=== PATIENT | female | born 2000 | race Caucasian/White ===

== ENCOUNTER 2020-10-24 10:41 | Emergency (ER) | payer BC, OTHER ==
--- OUTSIDE RECORDS SUMMARY | 2020-10-24 10:44 | XMS REPORT | Continuity of Care Document ---
:2000 Author Organization [facility] t Address [address] [place] [address] Care Team Providers Name Role Phone Cam ORTIZ, Janet Barnett Attending Clinician Problems This patient has no known problems. Allergies, Adverse Reactions, Alerts This patient has no known allergies or adverse reactions. Medications This patient has no known medications. Procedures This patient has no known procedures. Encounters Start End Encounter Admission Attending Care Care Encounter Source Date/Time Date/Time Type Type Clinicians Facility Department ID 2020-10-21 2020-10-21 Office Janet Levy [id number] 09:03:40 10:17:16 Visit Anibal De Oliveira [id number] [facility] [id number] [place] [address] [phone] Clinic 134 Results This patient has no known results.
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
[2020-10-24 13:02] VITALS: BP 112/66; TEMP 97.4; O2SAT 100
== END 2020-10-24 12:38 | disposition home or self-care (01) ==
LOC: ER 10:41
DX: S00.81XA Abrasion of other part of head, initial encounter (principal); W22.8XXA Striking against or struck by other objects, initial encounter; Y92.814 Boat as the place of occurrence of the external cause
CPT/HCPCS: 99282